=== PATIENT | female | born 1990 | race Caucasian/White ===

== ENCOUNTER 2017-02-02 07:32 | Emergency (ER) | payer BC, OTHER ==
[~2017-02-02] VITALS: Ht 160 cm; Wt 67.1 kg
[~2017-02-02 07:32] MED LIST: ACYCLOVIR400 MG PO; PRENATABS RX T1 EACH PO
[2017-02-02] MEDS ORDERED: MONTELUKAST SOD10 MG PO (07:47)
== END 2017-02-02 09:38 | disposition home or self-care (01) ==
LOC: ED 07:32
DX: R10.32 Left lower quadrant pain (principal); Z91.038 Other insect allergy status; Z91.018 Allergy to other foods; Z91.040 Latex allergy status; Z88.5 Allergy status to narcotic agent
CPT/HCPCS: 76830; 76856; 80053; 81001; 82150; 84703; 85025; 96361; 96374; 96375; 99284; J1885; J2405; J7030

== ENCOUNTER 2017-10-30 05:45 | Day surgery (SDC) | payer BC ==
[~2017-10-30] VITALS: Ht 160 cm; Wt 68.0 kg
[~2017-10-30 05:45] MED LIST changes: +CLARITIN10 MG PO; +FLONASE ALLERG9.9 ML NAS; +MONTELUKAST SOD10 MG PO; +ORTHO TRI-CYCL1 EACH PO
--- NOTE | 2017-10-30 08:56 | NUR ---
10/30/17 0856 Mary Ann Lei 0846 PATIENT ARRIVES TO PACU SLEEPING, DOES NOT RESPOND TO VERBAL STIMULI, BUT MOANING. NC AT 2 LITERS, RESP EVEN AND UNLABORED. 0850 PATIENT CONTINUES TO MOAN, BUT DIFFICULT TO VERBALIZE NEEDS. RATES PAIN AT 3/10, BUT HOLDING UP 3 FINGERS. THEN C/O BEING NAUSEATED. 0855 PATIENT MEDICATED FOR NAUSEATED, THEN FOR INCREASED PAIN, WORSE IN HER RIGHT BACK.
[2017-10-30] MEDS ORDERED: MAPAP325 MG PO (09:11)
[2017-10-30] MEDS ORDERED: OXYCODON-ACETA1 EAC2 PO (09:11)
[2017-10-30] MEDS ORDERED: IBUPROFEN600 MG PO (09:11)
--- NOTE | 2017-10-30 09:23 | NUR ---
PT ALERT, ORIENTED AND SUPPORTED BY HER FRIEND. PT ADMITTED SHE IS ALITTLE ANXIOUS, AND SEEMED TO RELAX WE EXPLAINED THE DAY AND WHAT SHE COULD EXPECT TO TAKE PLACE. PT REQUESTED PRAYER, WILL FOLLOW NEEDED
--- NOTE | 2017-10-30 10:46 | NUR ---
back discomfort. up to amb too nauseated. return to bed phenergan given.
--- NOTE | 2017-10-30 11:31 | NUR ---
AMB IN HALLWAY. C/O BACK PAIN SO WANTS TO MOVE AROUND. DID WELL. EATING CHEESE AND CRACKER. TOOK PAIN PILL.
--- NOTE | 2017-10-30 14:42 | NUR ---
states was up to br voided large amt. not measured. feeling nauseated with being up. had percocet earlier. iv fluid running. taking po sips water. talked to dr odn. to try ibuprofen. pt rq crackers and peanut butter. then ibuprofen given.
--- NOTE | 2017-10-30 15:39 | NUR ---
UP TO BR VOIDS 400MLS. STATE A LITTLE PAINFUL BUT NOT NAUSEATED.
--- NOTE | 2017-10-30 16:46 | NUR ---
DR BEST IN TO TALK WITH PT. ORDERED NORCO TO SEE IF IT WORKS AND DOESNT CAUSE NAUSEA. GIVEN. WILL WAIT. REQ TOAST.
--- NOTE | 2017-10-30 17:53 | NUR ---
PT DENIES NAUSEA. STATES PAIN BETTER. WANTS TO GO HOME. HAS EATEN TOAST AND TURKEY MEAT WITH OUT NAUSEA. DR BEST NOTIFIED OF PT GOING HOME.
--- NOTE | 2017-10-31 10:03 | OR ---
[facility] [address], [place] [address] Signed DATE OF OPERATION: 10/30/2017 SURGEON: Yazan Best MD PREOPERATIVE DIAGNOSIS: Chronic acalculous cholecystitis. POSTOPERATIVE DIAGNOSIS: Chronic acalculous cholecystitis. PROCEDURE: Laparoscopic cholecystectomy with intraoperative cholangiogram. ANESTHESIA: General endotracheal; Mendy Elizabeth CRNA; local 20 mL of 0.25% Marcaine with epinephrine. 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 She has had recurrent bouts of right subcostal and epigastric pain, particularly worse following fatty food. She also has radiation of pain to her right subscapular area. The gallbladder ultrasound was found to be normal and a CCK-HIDA test was performed, which showed an ejection fraction of 77%, but with marked reproduction of her symptoms. She has a strong family history of biliary disease as well. She is admitted at this time to undergo cholecystectomy preferred by a laparoscopic approach, understanding the risks of bleeding, infection, bile duct injury, need for open procedure, and of course failure to cure her symptoms. Understands that she wished to proceed. FINDINGS: The gallbladder was chronically inflamed. Once opened, there was no sign of stone, but chronic inflammatory change of the mucosa was noted. The liver itself was normal. Cholangiogram was normal as well. DESCRIPTION OF PROCEDURE: The patient was brought to the operating room and given a general endotracheal anesthetic. Preoperative antibiotic Ancef was given. Sequential compression device stockings used and heparin subcutaneously administered. The abdomen was prepared with a chlorhexidine solution and draped sterilely. An infraumbilical incision was made and Electronically Signed By: YAZAN BEST MD 10/31/17 1003 PATIENT NAME: FADUMO LOUIS OPERATIVE REPORT DATE OF : [birth year] REPORT #: [id number] PHYSICIAN: YAZAN BEST MD PCP: CHLOE FROST PAC REPORT IS CONFIDENTIAL AND NOT TO BE RELEASED WITHOUT AUTHORIZATION [facility] [address], [place] [address] Signed using an open René cannula technique, pneumoperitoneum was achieved to a level of 14 mmHg of carbon dioxide gas. Intraabdominal inspection showed no sign of ascites or carcinomatosis. The gallbladder showed chronic inflammatory change. The liver was normal. Three additional trocars were placed in usual configuration in the subxiphoid right midclavicular and right anterior axillary line. The gallbladder was elevated cephalad and retracted laterally. Using blunt and electrocautery dissection, the triangle of Calot dissected free, identifying also a somewhat enlarged pericholecystic lymph node. A cystic arterial branch was doubly clipped and later divided and a clip was applied across gallbladder cystic duct junction as well. A transverse choledochotomy was made in the cystic duct after ascertaining the critical view having been adequate. Retrograde milking of the cystic duct showed egress of clear bile. Using an Flannery type cholangiocatheter, intraoperative cholangiography was undertaken showing free flow of contrast in the biliary tree with prompt emptying into the duodenum and typical conventional anatomy. There was no sign of filling defect or other abnormality. The catheter was removed and the cystic duct was triply clipped and divided, and the gallbladder was dissected free in a retrograde fashion using electrocautery. A small rent was made in the gallbladder allowing for spillage of clear bile, but was quickly suctioned free. The gallbladder was placed in an endobag and extracted through the infraumbilical port site without problem, opened on the back table and found to have chronic inflammatory change of mucosa, but no sign of stone. Irrigation was undertaken in the subhepatic space. Excess irrigation fluid was suctioned free. The trocars were removed under direct visualization showing no sign of bleeding. The infraumbilical fascial incision was reapproximated with interrupted 0 Vicryl suture. A 20 mL of 0.25% Marcaine with epinephrine was injected locally. The skin was then closed with interrupted 3-0 Vicryl. Steri-Strips were applied. The patient was ultimately extubated and transferred to recovery room in good condition having suffered no complication. Sponge, needle, and instrument counts reported as correct x3. MD KAROLINE Bear/MODL Electronically Signed By: YAZAN BEST MD 10/31/17 1003 PATIENT NAME: FADUMO LOUIS OPERATIVE REPORT DATE OF : [birth year] REPORT #: [id number] PHYSICIAN: YAZAN BEST MD PCP: CHLOE FROST PAC REPORT IS CONFIDENTIAL AND NOT TO BE RELEASED WITHOUT AUTHORIZATION [facility] [address] [place] [id number] Signed /[id number] cc: Chloe Frost PA-C Copies: CHLOE FROST ~ Electronically Signed By: YAZAN BEST MD 10/31/17 1003 PATIENT NAME: FADUMO LOUIS OPERATIVE REPORT DATE OF : [birth year] REPORT #: [id number] PHYSICIAN: YAZAN BEST MD PCP: CHLOE FROST REPORT IS CONFIDENTIAL AND NOT TO BE RELEASED WITHOUT AUTHORIZATION
== END 2017-10-30 17:50 | disposition home or self-care (01) ==
LOC: OPS 05:45 → DS 05:45 → OPS 06:45 → DS 08:45 → OPS 17:50
PROVIDERS: Surgery
PROC: BF13YZZ Fluoroscopy of Gallbladder and Bile Ducts using Other Contrast (ICD-10-PCS; 2017-10-30)
PROC: 0FT44ZZ Resection of Gallbladder, Percutaneous Endoscopic Approach (ICD-10-PCS; principal; 2017-10-30 06:45)
DX: K81.1 Chronic cholecystitis (principal); K21.9 Gastro-esophageal reflux disease without esophagitis; Z79.51 Long term (current) use of inhaled steroids; Z79.899 Other long term (current) drug therapy; Z88.5 Allergy status to narcotic agent
CPT/HCPCS: 00790; 74300; J0131; J0690; J0735; J1100; J1644; J1885; J2250; J2405; J2550; J2704; J3010; J3475; J7120; Q9967

== ENCOUNTER 2020-08-15 07:28 | Emergency (ER) | payer BC ==
[~2020-08-15] VITALS: Ht 160 cm; Wt 93.9 kg
[~2020-08-15 07:28] MED LIST changes: +IBUPROFEN600 MG PO; +MAPAP325 MG PO; +OXYCODON-ACETA1 EAC2 PO
[2020-08-15] MEDS ORDERED: PRENATAL FORMU1 EAC3 PO (07:37)
[2020-08-15] MEDS ORDERED: VITAMIN C1000 MG PO (07:38)
[2020-08-15] MEDS ORDERED: CARBONYL IRON45 MG PO (07:40)
== END 2020-08-15 08:33 | disposition home or self-care (01) ==
LOC: ED 07:28
DX: O9A.213 Injury, poisoning and certain other consequences of external causes complicating pregnancy, third trimester (principal); S70.02XA Contusion of left hip, initial encounter; Z3A.33 33 weeks gestation of pregnancy; W00.0XXA Fall on same level due to ice and snow, initial encounter; Z91.018 Allergy to other foods; Z91.040 Latex allergy status; Z88.5 Allergy status to narcotic agent
CPT/HCPCS: 99283